=== PATIENT | female | born 1955 | race Caucasian/White ===

== ENCOUNTER 2020-05-12 20:36 | Emergency (ER) | payer MEDICARE, MEDICAID ==
[~2020-05-12] VITALS: Ht 157.5 cm; Wt 91.0 kg
[2020-05-12] MEDS ORDERED: ASPIRIN 81MG TABLET PO ONE (22:45)
[2020-05-12 22:47] LABS: BASOPHILS % 0.8 % (0.0-2.0); EOSINOPHILS % 3.6 % (0.0-5.0); HEMATOCRIT. 35.3 % (36.0-48.0); HEMOGLOBIN. 11.8 g/dL (12.0-16.0); LYMPHOCYTES % 26.4 % (20.0-50.0); MEAN CORPUSCULAR HEMOGLOBIN 28.5 pg (28.0-32.0); MEAN CORPUSCULAR VOLUME 84.9 fL (81.0-99.0); MEAN PLATELET VOLUME 9.4 fl (7.4-10.4); MONOCYTES % 7.2 % (2.0-8.0); PLATELET 218 x1000/uL (130-400); RED BLOOD CELL COUNT 4.15 mill/uL (4.2-5.4); RED CELL DISTRIBUTION WIDTH 13.7 % (11.6-14.6)
[2020-05-12 22:51] LABS: CHLORIDE 102 mEq/L (98-107)
[2020-05-13] MEDS ORDERED: LORAZEPAM 1MG TABLET PO ONE (00:30)
[2020-05-13] MEDS ORDERED: MECLIZINE 25MG TABLET PO ONE (00:30)
[2020-05-13 03:45] VITALS: BP 162/78
== END 2020-05-13 04:06 | disposition home or self-care (01) ==
LOC: ER 20:48
DX: R42 Dizziness and giddiness (principal); R00.2 Palpitations; I10 Essential (primary) hypertension; E03.9 Hypothyroidism, unspecified; Z91.040 Latex allergy status
CPT/HCPCS: 36415; 71045; 80053; 82962; 83880; 84484; 85025; 93005; 99285; J8597